=== PATIENT | female | born 1980 | race American Indian/Alaskan Native ===

== ENCOUNTER 2021-08-06 11:58 | Emergency (ER) | payer MEDICAID, OTHER ==
[2021-08-06] MEDS ORDERED: Morphine 4 MG/ML VIAL IVPUSH ONE (12:00)
[2021-08-06] MEDS ORDERED: Sodium Chloride 0.9% 1,000 ML IV ONE (12:00)
[2021-08-06] MEDS ORDERED: Ondansetron 4 MG/2 ML SDV IVPUSH ONE ×2 (12:01→14:41)
[2021-08-06 12:45] LABS: BLOOD UREA NITROGEN,BUN 11 mg/dL (7.0-18.0); CARBON DIOXIDE,CO2 25.3 mmol/L (21.0-32.0); CHLORIDE,CL 103 mmol/L (98-107); GLUCOSE RANDOM 100 mg/dL (74-106); POTASSIUM,K 3.9 mmol/L (3.5-5.1); SODIUM,NA 140 mmol/L (136-145)
[2021-08-06] MEDS ORDERED: Enoxaparin 100 MG/1 ML Syringe SUBCUT ONE (13:25)
[2021-08-06] MEDS ORDERED: Iopamidol 755 MG/ML 500 ML Multipack Bottle IVPUSH ONE (18:18)
== END 2021-08-06 15:45 | disposition home or self-care (01) ==
LOC: MW.ED 11:58
DX: R07.2 Precordial pain (principal); Z88.0 Allergy status to penicillin; Z79.01 Long term (current) use of anticoagulants; Z20.822 Contact with and (suspected) exposure to COVID-19
CPT/HCPCS: 36415; 71045; 71275; 80053; 81001; 83605; 84484; 84703; 85025; 85379; 85610; 87086; 87635; 93005; 96372; 96374; 96375; 96376; 99285; J1650; J2270; J2405; J7030; Q9967; U0002

== ENCOUNTER 2021-10-26 09:24 | Emergency (ER) | payer MEDICAID ==
[2021-10-26] MEDS ORDERED: traMADol 50 MG Tab PO ONE (11:07)
== END 2021-10-26 11:24 | disposition home or self-care (01) ==
LOC: MW.ED 09:24
DX: S93.401A Sprain of unspecified ligament of right ankle, initial encounter (principal); S69.92XA Unspecified injury of left wrist, hand and finger(s), initial encounter; Z88.0 Allergy status to penicillin; Z88.5 Allergy status to narcotic agent; W01.0XXA Fall on same level from slipping, tripping and stumbling without subsequent striking against object, initial encounter
CPT/HCPCS: 73110; 73610; 99283; A9270